=== PATIENT | male | born 1960 | race Caucasian/White ===

== ENCOUNTER 2021-08-20 07:44 | Outpatient (REF) | payer MEDICAID, SELFPAY ==
--- NOTE | ~2021-08-20 | CT_ITS ---
EXAMINATION: CT CHEST SCREENING CLINICAL INFORMATION: Smoking history. Current smoker. 45 pack year history. COMPARISON: Previous chest CT July 2019 TECHNIQUE: Multidetector volumetric CT imaging of the chest is performed without contrast using low dose technique. Additional 2D coronal and sagittal reformatted images and axial 3D maximum intensity projection (MIP) images are generated on the CT workstation. This CT examination was performed using dose optimization techniques as appropriate, variously including the following: *Automated exposure control *Adjustment of mA and/or kV according to patient size (this includes techniques or standardized protocols for targeted exams where dose is matched to indication/reason for exam; i.e. extremities or head) *Use of iterative reconstruction technique DLP: 45 mGy-cm FINDINGS: LUNGS: The small calcified pulmonary nodules are stable. The mild focal bronchiectasis in the right upper lobe does not appear appreciably changed. There the lungs are well inflated and there are mild centrilobular emphysematous changes. No evidence of interstitial lung disease. No endobronchial or endotracheal lesion. MEDIASTINUM: There is coronary artery calcification. The mediastinum is otherwise normal. PLEURA: There is no pleural effusion. No pleural mass or thickening. AXILLA: No lymphadenopathy. UPPER ABDOMEN: There may be a small right renal stone. OSSEOUS STRUCTURES: There are degenerative changes of the spine. CT/CT lung screening IMPRESSION: Mild emphysema. Stable small calcified pulmonary nodules and focal right upper lobe bronchiectasis. Coronary artery calcification. ASSESSMENT: Lung-RADS category 2: Benign RECOMMENDATION: Annual low-dose chest CT follow-up recommended.
== END 2021-08-20 07:45 | disposition home or self-care (01) ==
LOC: HO.CT 07:44
PROVIDERS: Visit Provider Surgery
DX: Z12.2 Encounter for screening for malignant neoplasm of respiratory organs (principal); F17.210 Nicotine dependence, cigarettes, uncomplicated
CPT/HCPCS: 71271